=== PATIENT | male | born 1975 | race Caucasian/White ===

== ENCOUNTER 2018-04-27 15:10 | Inpatient (IN) | payer OTHER ==
[2018-04-27 16:20] VITALS: BMI 27.2
--- NOTE | 2018-04-27 20:09 | HP ---
Admission [facility] Chief Complaint: alcohol, xanax, cocaine and oxycondone rehabilitation Allergies/Adverse Reactions: Allergies Allergy/AdvReac Type Severity Reaction Status Date / Time No Known Allergies Allergy Verified 04/27/18 17:59 History of Present Illness: 42 yo male with hx of xanax, oxycodone, cocaine, and alcohol rehabilitation, reports first time seeking treatment for substance dependence. Reports hx of anxiety. Denies suicidal / homicidal ideation or hx of suicide attempts. Denies hx of seizures or blackouts. Exam Limitations: No Limitations - Ebola screening Have you traveled outside of the country in the last 21 days: No Have you had contact with anyone from an Ebola affected area: No Have you been sick,other than usual withdrawal symptoms: No Do you have a fever: No - Review of Systems Constitutional: Loss of Appetite, Changes in sleep, Unintentional Wgt. Loss (12 lbs in the past two weeks) EENT: reports: Other (floaters since 20 yo) Respiratory: reports: No Symptoms reported Cardiac: reports: No Symptoms Reported GI: reports: No Symptoms Reported : reports: No Symptoms Reported Musculoskeletal: reports: No Symptoms Reported Integumentary: reports: No Symptoms Reported Neuro: reports: No Symptoms reported Endocrine: reports: No Symptoms Reported Hematology: reports: No Symptoms Reported Psychiatric: reports: Anxious Other Systems: Reviewed and Negative Patient History - Patient Medical History Hx Anemia: No Hx Asthma: No Hx Chronic Obstructive Pulmonary Disease (COPD): No Hx Cancer: No Hx Cardiac Disorders: No Hx Congestive Heart Failure: No Hx Hypertension: No Hx Hypercholesterolemia: No Hx Pacemaker: No HX Cerebrovascular Accident: No Hx Seizures: No Hx Dementia: No Hx Diabetes: No Hx Gastrointestinal Disorders: No Hx Liver Disease: No Hx Genitourinary Disorders: No Hx Sexually Transmitted Disorders: No Hx Renal Disease (ESRD): No Hx Thyroid Disease: No Hx Human Immunodeficiency Virus (HIV): No (last tested one year ago negative, declines testing at this time ) Hx Hepatitis C: No Hx Depression: No Hx Suicide Attempt: No Hx Bipolar Disorder: No Hx Schizophrenia: No Other Medical History: anxiety d/o - Patient Surgical History Past Surgical History: No - PPD History Previous Implant?: No Documented Results: Negative w/o proof PPD to be Administered?: Yes - Smoking Cessation Smoking history: Current some day smoker Have you smoked in the past 12 months: No Hx Chewing Tobacco Use: No Initiated information on smoking cessation: No - Substance & Tx. History Hx Alcohol Use: Yes Hx Substance Use: Yes Substance Use Type: Alcohol, Opiates, Tranquilizers Hx Substance Use Treatment: No - Substances Abused Alcohol Route: Oral Frequency: 1-2 times per week Amount used: 10 beers Age of first use: 14 Date of Last Use: 04/23/08 Oxycontin Route: Oral Frequency: 1-2 times per week Amount used: 3 10mg Age of first use: 37 Date of Last Use: 04/23/18 Alprazolam (Xanax) Route: Oral Frequency: 1-2 times per week Amount used: 1mg Age of first use: 32 Date of Last Use: 04/24/18 Cocaine Route: Inhalation Frequency: 1-2 times per week Amount used: 1 gram Age of first use: 24 Date of Last Use: 04/13/18 Family Disease History - Family Disease History Family Disease History: Other: Father ( Parkinson ) Admission Physical Exam [facility] - Vital Signs Vital Signs: Vital Signs - 24 hr 04/27/18 16:16 Temperature 96.1 F L Pulse Rate 72 Respiratory 20 Rate Blood Pressure 138/89 - Physical General Appearance: Yes: Nourished, Appropriately Dressed, Anxious HEENTM: Yes: Hearing grossly Normal, Normal ENT Inspection, Normocephalic, Normal Voice, ANEL, Pharynx Normal, Tm's normal Respiratory: Yes: Chest Non-Tender, Lungs Clear, Normal Breath Sounds, No Respiratory Distress, No Accessory Muscle Use Neck: Yes: Within Normal Limits Breast: Yes: Breast Exam Deferred Cardiology: Yes: Regular Rhythm, Regular Rate Abdominal: Yes: Normal Bowel Sounds, Non Tender, Flat, Soft Genitourinary: Yes: Within Normal Limits Back: Yes: Normal Inspection Musculoskeletal: Yes: full range of Motion, Gait Steady, Pelvis Stable Extremities: Yes: Normal Capillary Refill, Normal Inspection, Normal Range of Motion, Non-Tender Neurological: Yes: electromechanical engineer II-XII NML intact, Fully Oriented, Motor Strength 5/5, Depressed Affect Integumentary: Yes: Normal Color, Dry, Warm Lymphatic: Yes: Within Normal Limits - Diagnostic (1) Alcohol dependence Current Visit: Yes Status: Acute Qualifiers: Substance use status: uncomplicated Qualified Code(s): F10.20 - Alcohol dependence, uncomplicated (2) Sedative hypnotic or anxiolytic dependence Current Visit: Yes Status: Acute (3) Opioid dependence Current Visit: Yes Status: Acute Qualifiers: Substance use status: uncomplicated Qualified Code(s): F11.20 - Opioid dependence, uncomplicated (4) Cocaine dependence Current Visit: Yes Status: Acute Qualifiers: Substance use status: uncomplicated Qualified Code(s): F14.20 - Cocaine dependence, uncomplicated (5) Anxiety Current Visit: Yes Status: Suspected [facility] Breath Alcohol Content Breath Alcohol Content: 0 Urine Drug Screen - Results Drug Screen Negative: No Urine Drug Screen Results: TCA-Tricyclic Antidepress Inpatient Rehab Admission - Initial Determination Are CD services needed?: Yes Free of communicable disease: Yes Not in need of hospitalization: Yes - Rehab Admission Criteria Previous failed treatment: Yes Poor recovery environment: Yes Comorbidities: Yes Lacks judgement: Yes Patient is meeting Inpatient Rehab admission criteria:: Yes
[2018-04-27] MEDS ORDERED: P-EPHED 60MG/TRIPROLIDI 2.5MG TABLET PO PRN (20:39)
[2018-04-27] MEDS ORDERED: MAGNESIUM CITRATE 300 ML BOTTLE PO PRN (20:39)
[2018-04-27] MEDS ORDERED: MAGNESIUM HYDROX 2400MG/30ML ORAL SUSPENSION 30 ML CUP PO PRN (20:39)
[2018-04-27] MEDS ORDERED: MAG HYDROX/AL HYDROX/SIMETH 30 ML UNIT-DOSE CUP PO PRN (20:39)
[2018-04-27] MEDS ORDERED: MENTHOL/PHENOL 1 EACH UD MM PRN (20:39)
[2018-04-27] MEDS ORDERED: LOPERAMIDE HCL 2 MG CAPSULE PO PRN (20:39)
[2018-04-27] MEDS ORDERED: guaiFENesin/D-METHORPHAN HB 10 ML UNIT-DOSE CUPS PO PRN (20:39)
[2018-04-27] MEDS ORDERED: ACETAMINOPHEN 325 MG TABLET (FP) PO PRN (20:39)
[2018-04-28] MEDS ORDERED: TUBERCULIN PPD 5 TU/0.1ML VIAL ID ONE (00:55)
[2018-04-28] MEDS: IBUPROFEN 400 MG TABLET (FP) PO PRN (01:29)
[2018-04-28] MEDS: MELATONIN 5 MG TABLETS PO PRN ×2 (01:29→22:16)
[2018-04-28] MEDS: hydrOXYzine PAMOATE 50 MG CAPSULE (FP) PO PRN ×2 (01:30→22:16)
[2018-04-28] MEDS: THIAMINE HCL 100 MG TABLET (FP) PO SCH ×2 (01:30→22:16)
[2018-04-28] MEDS: PRENATAL VITAMINS W/ FOLIC ACID TABLET (FP) PO SCH (10:13)
[2018-04-28 11:01] LABS: CHLORIDE 105 mmol/L (98-107); POTASSIUM 4.7 mmol/L (3.5-5.1); SODIUM 141 mmol/L (136-145)
[2018-04-28 11:29] LABS: ALBUMIN 3.5 g/dl (3.4-5.0); ALK PHOS 74 U/L (45-117); ANION GAP 6 MMOL/L (8-16); BILIRUBIN,TOTAL 0.4 mg/dL (0.2-1.0); BLOOD UREA NITROGEN 16 mg/dL (7-18); CALCIUM 8.9 mg/dL (8.5-10.1); CO2 30 mmol/L (21-32); CREATININE 0.9 mg/dL (0.7-1.3); GLUCOSE,RANDOM 97 mg/dL (74-106); SGOT/AST 13 U/L (15-37); SGPT/ALT 33 U/L (12-78); TOT PROT 6.3 g/dl (6.4-8.2)
[2018-04-28 11:40] LABS: HEMATOCRIT 42.6 % (35.4-49); HEMOGLOBIN 14.2 GM/dL (11.7-16.9); MCHC 33.2 g/dl (32.0-35.9); MEAN CELL VOLUME 93.2 fl (80-96); MEAN PLT VOLUME 9.5 fl (7.5-11.1); PLATELET COUNT 244 K/MM3 (134-434); RBC 4.57 M/mm3 (4.00-5.60); RDW 14.6 % (11.9-15.9); WHITE BLOOD COUNT 8.1 K/mm3 (4.0-10.0)
[2018-04-28 12:36] LABS: URINE APPEARANCE CLEAR; URINE BILIRUBIN NEGATIVE (<2.0 mg/dL); URINE COLOR YELLOW; URINE GLUCOSE (UA) NEGATIVE (NEGATIVE); URINE KETONE NEGATIVE (NEGATIVE); URINE LEUK ESTERASE NEGATIVE (NEGATIVE); URINE NITRITE NEGATIVE (NEGATIVE); URINE PROTEIN NEGATIVE (NEGATIVE)
--- NOTE | 2018-04-28 13:47 | EKG ---
Test Reason : Blood Pressure : / mmHG Vent. Rate : 051 BPM Atrial Rate : 051 BPM P-R Int : 150 ms QRS Dur : 088 ms QT Int : 420 ms P-R-T Axes : 051 052 027 degrees QTc Int : 387 ms SINUS BRADYCARDIA OTHERWISE NORMAL ECG NO PREVIOUS ECGS AVAILABLE Confirmed by EBEN MILLER MD ([id number]) on 04/28/2018 1:46:51 PM Referred By: Confirmed By:EBEN MILLER MD
--- NOTE | 2018-04-28 14:47 | PN ---
[facility] Progress Note Note: Vital Signs Temperature 98 F 04/28/18 07:16 Pulse Rate 65 04/28/18 07:16 Respiratory Rate 18 04/28/18 07:16 Blood Pressure 128/89 04/28/18 07:16 O2 Sat by Pulse Oximetry (%) Laboratory Last Values WBC 8.1 K/mm3 (4.0-10.0) 04/28/18 07:30 RBC 4.57 M/mm3 (4.00-5.60) 04/28/18 07:30 Hgb 14.2 GM/dL (11.7-16.9) 04/28/18 07:30 Hct 42.6 % (35.4-49) 04/28/18 07:30 MCV 93.2 fl (80-96) 04/28/18 07:30 MCH 31.0 pg (25.7-33.7) 04/28/18 07:30 MCHC 33.2 g/dl (32.0-35.9) 04/28/18 07:30 RDW 14.6 % (11.9-15.9) 04/28/18 07:30 Plt Count 244 K/MM3 (134-434) 04/28/18 07:30 MPV 9.5 fl (7.5-11.1) 04/28/18 07:30 Sodium 141 mmol/L (136-145) 04/28/18 07:30 Potassium 4.7 mmol/L (3.5-5.1) 04/28/18 07:30 Chloride 105 mmol/L (98-107) 04/28/18 07:30 Carbon Dioxide 30 mmol/L (21-32) 04/28/18 07:30 Anion Gap 6 MMOL/L (8-16) L 04/28/18 07:30 BUN 16 mg/dL (7-18) 04/28/18 07:30 Creatinine 0.9 mg/dL (0.7-1.3) 04/28/18 07:30 Creat Clearance w eGFR > 60 (>60) 04/28/18 07:30 Random Glucose 97 mg/dL (74-106) 04/28/18 07:30 Calcium 8.9 mg/dL (8.5-10.1) 04/28/18 07:30 Total Bilirubin 0.4 mg/dL (0.2-1.0) 04/28/18 07:30 AST 13 U/L (15-37) L 04/28/18 07:30 ALT 33 U/L (12-78) 04/28/18 07:30 Alkaline Phosphatase 74 U/L (45-117) 04/28/18 07:30 Total Protein 6.3 g/dl (6.4-8.2) L 04/28/18 07:30 Albumin 3.5 g/dl (3.4-5.0) 04/28/18 07:30 Urine Color Yellow 04/28/18 10:00 Urine Appearance Clear 04/28/18 10:00 Urine pH 5.0 (5.0-8.0) 04/28/18 10:00 Ur Specific [place] 1.030 (1.001-1.035) 04/28/18 10:00 Urine Protein Negative (NEGATIVE) 04/28/18 10:00 Urine Glucose (UA) Negative (NEGATIVE) 04/28/18 10:00 Urine Ketones Negative (NEGATIVE) 04/28/18 10:00 Urine Blood Negative (NEGATIVE) 04/28/18 10:00 Urine Nitrite Negative (NEGATIVE) 04/28/18 10:00 Urine Bilirubin Negative (<2.0 mg/dL) 04/28/18 10:00 Urine Urobilinogen 2.0 mg/dL (0.2-1.0) 04/28/18 10:00 Ur Leukocyte Esterase Negative (NEGATIVE) 04/28/18 10:00 labs reviewed patient stable continue rehab tx continue to monitor
[2018-04-28] MEDS ORDERED: PNEUMOC 13-VAL CONJ-DIP CRM/PF 0.5 ML DISP.SYRIN IM ONE (15:01)
[2018-04-29] MEDS: PRENATAL VITAMINS W/ FOLIC ACID TABLET (FP) PO SCH (10:04)
[2018-04-29] MEDS ORDERED: PNEUMOCOCCAL 23 VACCINE 0.5 ML VIAL IM ONE (12:00)
--- NOTE | 2018-04-29 14:23 | HP ---
Psychiatrist Admission - Data Date of interview: 04/29/18 Admission source: [facility] Identifying data: This is the first admission to [address] [place] [address] rehabilitation for this 42 yo single father of 2 (kids reside with their mother) .Patient resides with family,unemployed,supported by family. Medical History: Unremarkable Psychiatric History: Patient has long history of anxiety.medicated himself with drugs,alcohol,non prescribed medications(Xanax,percoset).patient has no history of psychiatric hospitalizations,no suicidal attempts reported.Reports severe anxiety,sleeping difficulties. Physical/Sexual Abuse/Trauma History: denies Vital Signs: Vital Signs - 24 hr 04/29/18 04/29/18 04/29/18 00:30 03:30 07:10 Temperature 98.1 F Pulse Rate 60 Respiratory 18 18 18 Rate Blood Pressure 121/80 Allergies/Adverse Reactions: Allergies Allergy/AdvReac Type Severity Reaction Status Date / Time No Known Allergies Allergy Verified 04/27/18 17:59 Concur with the findings of this exam: Yes - Substance Abuse/Tx History Hx Alcohol Use: Yes (drinking since 17 yo,beer a few 6 packs) Hx Substance Use: Yes (cocaine since 25 yo,a few times a month,pain killers since 36 yo,Xanax 32 y) Substance Use Type: Alcohol, Cocaine, Opiates Hx Substance Use Treatment: Yes (this is his first inpatient rehabilitation treatment) Mental Status Exam - Mental Status Exam Alert and Oriented to: Time, Place, Person Cognitive Function: Grossly Intact Patient Appearance: Well Groomed Mood: Anxious Affect: Mood Congruent, Labile Patient Behavior: Restless, Cooperative Speech Pattern: Clear Voice Loudness: Normal Thought Process: Goal Oriented Thought Disorder: Not Present Hallucinations: Denies Suicidal Ideation: Denies Homicidal Ideation: Denies Insight/Judgement: Fair Sleep: Difficulty falling asleep Appetite: Fair Muscle strength/Tone: Normal Gait/Station: Normal Psychiatric Findings - Problem List ([place] 1, 2,3) (1) Sedative hypnotic or anxiolytic dependence Current Visit: Yes Status: Chronic (2) Opioid dependence Current Visit: Yes Status: Chronic Qualifiers: Substance use status: uncomplicated Qualified Code(s): F11.20 - Opioid dependence, uncomplicated (3) Cocaine dependence Current Visit: Yes Status: Chronic Qualifiers: Substance use status: uncomplicated Qualified Code(s): F14.20 - Cocaine dependence, uncomplicated (4) Substance induced mood disorder Current Visit: Yes Status: Chronic - Initial Treatment Plan Initial Treatment Plan: Elavil 25 mg po tid,Vistaril 25 mg po prn. Will momnitor progress.
[2018-04-29] MEDS: AMITRIPTYLINE HCL 25 MG TABLET (FP) PO SCH ×2 (15:43→22:18)
[2018-04-29] MEDS: THIAMINE HCL 100 MG TABLET (FP) PO SCH (22:18)
[2018-04-29] MEDS: hydrOXYzine PAMOATE 50 MG CAPSULE (FP) PO PRN (22:18)
[2018-04-29] MEDS: MELATONIN 5 MG TABLETS PO PRN (22:18)
[2018-04-29] MEDS: IBUPROFEN 400 MG TABLET (FP) PO PRN (22:19)
[2018-04-30] MEDS: AMITRIPTYLINE HCL 25 MG TABLET (FP) PO SCH ×3 (06:16→22:11)
[2018-04-30] MEDS: PRENATAL VITAMINS W/ FOLIC ACID TABLET (FP) PO SCH (10:07)
[2018-04-30] MEDS: THIAMINE HCL 100 MG TABLET (FP) PO SCH (22:11)
[2018-04-30] MEDS: MELATONIN 5 MG TABLETS PO PRN (22:11)
[2018-05-01] MEDS: AMITRIPTYLINE HCL 25 MG TABLET (FP) PO SCH ×3 (06:21→21:48)
[2018-05-01] MEDS: PRENATAL VITAMINS W/ FOLIC ACID TABLET (FP) PO SCH (10:00)
[2018-05-01] MEDS: MELATONIN 5 MG TABLETS PO PRN (21:48)
[2018-05-01] MEDS: THIAMINE HCL 100 MG TABLET (FP) PO SCH (21:48)
[2018-05-02] MEDS: AMITRIPTYLINE HCL 25 MG TABLET (FP) PO SCH ×3 (06:15→21:52)
[2018-05-02] MEDS: PRENATAL VITAMINS W/ FOLIC ACID TABLET (FP) PO SCH (10:48)
[2018-05-02] MEDS ORDERED: COLLOIDAL OATMEAL 1 BAR EACH TP PRN (14:35)
[2018-05-02] MEDS ORDERED: HYDROCORTISONE 1% TOPICAL OINT 30 GM TUBE TP PRN (14:36)
--- NOTE | 2018-05-02 14:38 | PN ---
[facility] Progress Note Note: Vital Signs Temperature 98.5 F 05/02/18 07:08 Pulse Rate 68 05/02/18 07:08 Respiratory Rate 18 05/02/18 07:08 Blood Pressure 122/79 05/02/18 07:08 O2 Sat by Pulse Oximetry (%) c/o of rash on the left anticubital fossa with mild itch. Patient denies any hx of skin d/o. Patient Aox3 no distress no adventitious breath sounds skin intact + mild linchefiaton left anticubital fossa full ROM ambulating in the unit contact dermatitis Plan: hydrocortisone TP oint aveeno soap increase fluids continue to monitor
[2018-05-02] MEDS: MELATONIN 5 MG TABLETS PO PRN (21:52)
[2018-05-02] MEDS: THIAMINE HCL 100 MG TABLET (FP) PO SCH (21:52)
[2018-05-03] MEDS: AMITRIPTYLINE HCL 25 MG TABLET (FP) PO SCH ×3 (06:26→22:06)
[2018-05-03] MEDS: PRENATAL VITAMINS W/ FOLIC ACID TABLET (FP) PO SCH (10:34)
[2018-05-03] MEDS: MELATONIN 5 MG TABLETS PO PRN (22:06)
[2018-05-03] MEDS: THIAMINE HCL 100 MG TABLET (FP) PO SCH (22:06)
[2018-05-04] MEDS: AMITRIPTYLINE HCL 25 MG TABLET (FP) PO SCH ×3 (06:32→22:49)
[2018-05-04] MEDS: PRENATAL VITAMINS W/ FOLIC ACID TABLET (FP) PO SCH (10:29)
[2018-05-04] MEDS: THIAMINE HCL 100 MG TABLET (FP) PO SCH (22:41)
[2018-05-04] MEDS: MELATONIN 5 MG TABLETS PO PRN (22:41)
[2018-05-05] MEDS: AMITRIPTYLINE HCL 25 MG TABLET (FP) PO SCH ×3 (06:47→21:24)
[2018-05-05] MEDS: PRENATAL VITAMINS W/ FOLIC ACID TABLET (FP) PO SCH (10:23)
[2018-05-05] MEDS: MELATONIN 5 MG TABLETS PO PRN (21:24)
[2018-05-05] MEDS: THIAMINE HCL 100 MG TABLET (FP) PO SCH (21:24)
[2018-05-06] MEDS: AMITRIPTYLINE HCL 25 MG TABLET (FP) PO SCH (06:22)
[2018-05-06] MEDS: PRENATAL VITAMINS W/ FOLIC ACID TABLET (FP) PO SCH (10:43)
--- NOTE | 2018-05-06 12:13 | PN ---
Psychiatric Progress Note Vital Signs: Vital Signs Period Temp Pulse Resp BP Sys/Jackson Pulse Ox Last 24 Hr 98.0 F 75 18-18 122/77 Date of Session: 05/06/18 Chief Complaint:: Insomnia HPI: Patient addressing Alcohol, Opioid, Cocaine and Sedative Dependence comorbid with Nicotine Dependence and Substance-Induced Mood Disorder Current Medications: Active Medications Generic Name Dose Route Start Last Admin Trade Name Freq PRN Reason Stop Dose Admin Acetaminophen 650 mg 04/27/18 20:39 Tylenol - PO Q4H PRN FEVER Al Hydroxide/Mg Hydroxide 30 ml 04/27/18 20:39 Mylanta Oral Suspension - PO Q6H PRN DYSPEPSIA Amitriptyline HCl 100 mg 05/06/18 22:00 Elavil - PO HS MANOJ Colloidal Oatmeal 1 applic 05/02/18 14:35 Aveeno Soap - TP DAILY PRN HYGEINE Eucalyptus/Menthol/Phenol/Sorbitol 1 each 04/27/18 20:39 Cepastat Lozenge - MM Q4H PRN SORE THROAT Guaifenesin 10 ml 04/27/18 20:39 Robitussin Dm - PO Q6H PRN COUGH Hydrocortisone 1 applic 05/02/18 14:36 05/02/18 22:14 Hytone 1% Ointment - TP 1 applic DAILY PRN Administration pruritus Hydroxyzine Pamoate 50 mg 04/27/18 20:39 04/29/18 22:18 Vistaril - PO 50 mg Q4H PRN Administration AGITATION Ibuprofen 400 mg 04/27/18 20:39 04/29/18 22:19 Motrin - PO 400 mg Q6H PRN Administration Pain level 4-6 Loperamide HCl 4 mg 04/27/18 20:39 Imodium - PO Q6H PRN DIARRHEA Magnesium Citrate 300 ml 04/27/18 20:39 Citroma - PO Q48H PRN CONSTIPATION Magnesium Hydroxide 30 ml 04/27/18 20:39 Milk Of Magnesia - PO DAILY PRN CONSTIPATION Melatonin 5 mg 04/27/18 22:00 05/05/18 21:24 Melatonin PO 5 mg HS PRN Administration INSOMNIA Multivit/Folic Acid/Iron 1 tab 04/28/18 10:00 05/06/18 10:43 Vitamins (Sjr) - PO 1 tab DAILY MANOJ Administration Pseudoephedrine/Triprolidine 1 combo 04/27/18 20:39 Actifed - PO TID PRN NASAL CONGESTION Thiamine HCl 100 mg 04/27/18 22:00 05/05/18 21:24 Vitamin B1 - PO 100 mg HS MANOJ Administration Current Side Effect: No Lab tests ordered: Yes Lab tests reviewed: Yes Provider note:: Patient reports difficulty sleeping at bedtime and feeling sleepy during the day preventing him from fully participating in groups. He is currently on Elavil 25 mg po TID, Vistaril 50 mg po Q 4hrs prn and Melatonin 5 mg po HS prn. Discuseed with patient about substituting Elavil 100 mg po HS for elavil 25 mg po TID and he agreed with plan Total face to face time:: 15 Mental Status Exam - Mental Status Exam Alert and Oriented to: Time, Place, Person Cognitive Function: Fair Patient Appearance: Well Groomed Mood: Hopeful, Euthymic Affect: Appropriate Patient Behavior: Cooperative Speech Pattern: Clear Voice Loudness: Normal Thought Process: Intact, Goal Oriented Thought Disorder: Not Present Hallucinations: Denies Suicidal Ideation: Denies Homicidal Ideation: Denies Insight/Judgement: Fair Sleep: Poorly Appetite: Good Muscle strength/Tone: Normal Gait/Station: Normal Psychiatric Treatment Plan - Problem List (1) Alcohol dependence Current Visit: Yes Qualifiers: Substance use status: uncomplicated Qualified Code(s): F10.20 - Alcohol dependence, uncomplicated (2) Opioid dependence Current Visit: Yes Qualifiers: Substance use status: uncomplicated Qualified Code(s): F11.20 - Opioid dependence, uncomplicated (3) Cocaine dependence Current Visit: Yes Qualifiers: Substance use status: uncomplicated Qualified Code(s): F14.20 - Cocaine dependence, uncomplicated (4) Sedative hypnotic or anxiolytic dependence Current Visit: Yes (5) Substance induced mood disorder Current Visit: Yes Initial treatment plan: 1) Discontinue Elavil 25 mg po TID. 2) Start Elavil 100 mg po HS. 3) Monitor progress
[2018-05-06] MEDS: THIAMINE HCL 100 MG TABLET (FP) PO SCH (21:59)
[2018-05-06] MEDS: MELATONIN 5 MG TABLETS PO PRN (21:59)
[2018-05-06] MEDS: AMITRIPTYLINE HCL 100 MG TABLET PO SCH (21:59)
[2018-05-07] MEDS: PRENATAL VITAMINS W/ FOLIC ACID TABLET (FP) PO SCH (10:26)
[2018-05-07] MEDS: MELATONIN 5 MG TABLETS PO PRN (21:36)
[2018-05-07] MEDS: AMITRIPTYLINE HCL 100 MG TABLET PO SCH (21:36)
[2018-05-07] MEDS: THIAMINE HCL 100 MG TABLET (FP) PO SCH (21:36)
[2018-05-08] MEDS: PRENATAL VITAMINS W/ FOLIC ACID TABLET (FP) PO SCH (10:19)
[2018-05-08] MEDS: hydrOXYzine PAMOATE 50 MG CAPSULE (FP) PO PRN ×2 (11:31→21:41)
[2018-05-08] MEDS: MELATONIN 5 MG TABLETS PO PRN (21:41)
[2018-05-08] MEDS: AMITRIPTYLINE HCL 100 MG TABLET PO SCH (21:41)
[2018-05-08] MEDS: THIAMINE HCL 100 MG TABLET (FP) PO SCH (21:41)
[2018-05-09] MEDS: PRENATAL VITAMINS W/ FOLIC ACID TABLET (FP) PO SCH (10:18)
[2018-05-09] MEDS: THIAMINE HCL 100 MG TABLET (FP) PO SCH (22:15)
[2018-05-09] MEDS: hydrOXYzine PAMOATE 50 MG CAPSULE (FP) PO PRN (22:15)
[2018-05-09] MEDS: AMITRIPTYLINE HCL 100 MG TABLET PO SCH (22:15)
[2018-05-09] MEDS: MELATONIN 5 MG TABLETS PO PRN (22:15)
[2018-05-10] MEDS: PRENATAL VITAMINS W/ FOLIC ACID TABLET (FP) PO SCH (10:41)
--- NOTE | 2018-05-10 12:13 | PN ---
Psychiatric Progress Note Vital Signs: Vital Signs Period Temp Pulse Resp BP Sys/Jackson Pulse Ox Last 24 Hr 97.9 F 64 18-18 116/74 Date of Session: 05/10/18 Chief Complaint:: Discharge Note HPI: Patient addresing Opioid, Cocaine and Sedative Dependence comorbid with Substance-Induced Mood Disorder Current Medications: Active Medications Generic Name Dose Route Start Last Admin Trade Name Freq PRN Reason Stop Dose Admin Acetaminophen 650 mg 04/27/18 20:39 Tylenol - PO Q4H PRN FEVER Al Hydroxide/Mg Hydroxide 30 ml 04/27/18 20:39 Mylanta Oral Suspension - PO Q6H PRN DYSPEPSIA Amitriptyline HCl 100 mg 05/06/18 22:00 05/09/18 22:15 Elavil - PO 100 mg HS MANOJ Administration Colloidal Oatmeal 1 applic 05/02/18 14:35 Aveeno Soap - TP DAILY PRN HYGEINE Eucalyptus/Menthol/Phenol/Sorbitol 1 each 04/27/18 20:39 Cepastat Lozenge - MM Q4H PRN SORE THROAT Guaifenesin 10 ml 04/27/18 20:39 Robitussin Dm - PO Q6H PRN COUGH Hydrocortisone 1 applic 05/02/18 14:36 05/02/18 22:14 Hytone 1% Ointment - TP 1 applic DAILY PRN Administration pruritus Hydroxyzine Pamoate 50 mg 04/27/18 20:39 05/09/18 22:15 Vistaril - PO 50 mg Q4H PRN Administration AGITATION Ibuprofen 400 mg 04/27/18 20:39 04/29/18 22:19 Motrin - PO 400 mg Q6H PRN Administration Pain level 4-6 Loperamide HCl 4 mg 04/27/18 20:39 Imodium - PO Q6H PRN DIARRHEA Magnesium Citrate 300 ml 04/27/18 20:39 Citroma - PO Q48H PRN CONSTIPATION Magnesium Hydroxide 30 ml 04/27/18 20:39 Milk Of Magnesia - PO DAILY PRN CONSTIPATION Melatonin 5 mg 04/27/18 22:00 05/09/18 22:15 Melatonin PO 5 mg HS PRN Administration INSOMNIA Multivit/Folic Acid/Iron 1 tab 04/28/18 10:00 05/10/18 10:41 Vitamins (Sjr) - PO 1 tab DAILY MANOJ Administration Pseudoephedrine/Triprolidine 1 combo 04/27/18 20:39 Actifed - PO TID PRN NASAL CONGESTION Thiamine HCl 100 mg 04/27/18 22:00 05/09/18 22:15 Vitamin B1 - PO 100 mg HS MANOJ Administration Current Side Effect: No Lab tests ordered: Yes Lab tests reviewed: Yes Provider note:: Patient will complete this program on 05/11/18. He has methis treatment goals and will continue to address his issues in outpatient treatment at [facility]. 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 He responded well to Elavil 100 mg po HS. Script for 30 days supply of medication will be electronically transmitted to [facility] at [address] [place] [address]. He is stable for discharge on 05/11/18 Total face to face time:: 35 Mental Status Exam - Mental Status Exam Alert and Oriented to: Time, Place, Person Cognitive Function: Fair Patient Appearance: Well Groomed Mood: Hopeful, Euthymic Affect: Appropriate Patient Behavior: Cooperative Speech Pattern: Clear Voice Loudness: Normal Thought Process: Intact, Goal Oriented Thought Disorder: Not Present Hallucinations: Denies Suicidal Ideation: Denies Homicidal Ideation: Denies Sleep: Fair Appetite: Good Muscle strength/Tone: Normal Gait/Station: Normal Psychiatric Treatment Plan - Problem List (1) Alcohol dependence Current Visit: Yes Qualifiers: Substance use status: uncomplicated Qualified Code(s): F10.20 - Alcohol dependence, uncomplicated (2) Opioid dependence Current Visit: Yes Qualifiers: Substance use status: uncomplicated Qualified Code(s): F11.20 - Opioid dependence, uncomplicated (3) Cocaine dependence Current Visit: Yes Qualifiers: Substance use status: uncomplicated Qualified Code(s): F14.20 - Cocaine dependence, uncomplicated (4) Sedative hypnotic or anxiolytic dependence Current Visit: Yes (5) Substance induced mood disorder Current Visit: Yes Initial treatment plan: Patient nydia discharged tomorrow and referred to [facility] for outpatient treatment
[2018-05-10] MEDS: THIAMINE HCL 100 MG TABLET (FP) PO SCH (21:48)
[2018-05-10] MEDS: MELATONIN 5 MG TABLETS PO PRN (21:48)
[2018-05-10] MEDS: AMITRIPTYLINE HCL 100 MG TABLET PO SCH (21:48)
[2018-05-11 07:03] VITALS: BP 127/81; PULSE 71; TEMP 98.2
== END 2018-05-11 08:23 | disposition home or self-care (01) | DRG 772 ==
LOC: YASAS 15:10 → Y3W 21:10
PROVIDERS: ADMIT Psychiatry & Neurology Psychiatry; ATTEND Psychiatry & Neurology Psychiatry
PROC: HZ42ZZZ Group Counseling for Substance Abuse Treatment, Cognitive-Behavioral (ICD-10-PCS; principal; 2018-04-27)
DX: F11.20 Opioid dependence, uncomplicated (principal); F10.20 Alcohol dependence, uncomplicated; F14.20 Cocaine dependence, uncomplicated; F13.20 Sedative, hypnotic or anxiolytic dependence, uncomplicated; F19.24 Other psychoactive substance dependence with psychoactive substance-induced mood disorder; F41.9 Anxiety disorder, unspecified; L30.9 Dermatitis, unspecified
CPT/HCPCS: 36415; 80053; 81003; 85027; 86593; 90732; 93005; 93010; G0009